=== PATIENT | male | born 2000 | race Caucasian/White ===

== ENCOUNTER 2024-03-02 15:34 | Emergency (ER) | payer SELFPAY ==
[~2024-03-02] VITALS: Ht 177.8 cm; Wt 73.0 kg
[2024-03-02 15:41] VITALS: O2SAT 99
[2024-03-02] MEDS: ACETAMINOPHEN 325MG TABLET PO ONE (17:03)
[2024-03-02] MEDS ORDERED: METH-773 MT (17:35)
[2024-03-02] MEDS ORDERED: IBUP-2029 MT (17:35)
[2024-03-02 18:00] VITALS: BP 121/75; PULSE 83; RESP 17; TEMP 98.3
== END 2024-03-02 21:24 | disposition home or self-care (01) ==
LOC: ER 15:34
DX: S00.81XA Abrasion of other part of head, initial encounter (principal); S49.80XA Other specified injuries of shoulder and upper arm, unspecified arm, initial encounter; S89.82XA Other specified injuries of left lower leg, initial encounter; V98.8XXA Other specified transport accidents, initial encounter; Y93.89 Activity, other specified; Y92.89 Other specified places as the place of occurrence of the external cause; Y99.8 Other external cause status
CPT/HCPCS: 72070; 73030; 73590; 99284